=== PATIENT | male | born 1935 | race Caucasian/White ===

== ENCOUNTER 2019-01-14 15:06 | Inpatient (IN) | payer MEDICARE, OTHER ==
[~2019-01-14] VITALS: Ht 170.2 cm; Wt 79.1 kg
[2019-01-14 15:13] VITALS: BP 129/70
[2019-01-14] MEDS ORDERED: COZAAR 25 MG TA25 M1 PO (15:18)
[2019-01-14] MEDS ORDERED: NORVASC10 MG PO (15:18)
[2019-01-14] MEDS ORDERED: LIPITOR80 MG PO (15:19)
[2019-01-14 15:36] LABS: HEMATOCRIT 37.9 % (42.0-52.0); MCH 29.4 pg (26.0-34.0); MCHC 34.3 g/dL (28.0-37.0); MCV 85.6 fL (80.0-100.0); MPV 6.2 fl. (7.2-11.1); NUCLEATED RBCS 0 /100WBC; PLATELET COUNT* 570 thou/uL (150-400); RBC 4.43 mil/uL (4.50-6.00); RDW-CV 13.2 % (10.5-14.5); WBC 8.6 thou/uL (4.0-11.0)
[2019-01-14 15:40] LABS: ANION GAP 14 mmol/L (7-16); BUN 22 mg/dL (7-18); CALCIUM 9.7 mg/dL (8.5-10.1); CHLORIDE 87 mmol/L (98-107); CO2 19 mmol/L (21-32); CREATININE 1.7 mg/dL (0.6-1.3); GLUCOSE 109 mg/dL (70-99); POTASSIUM 4.3 mmol/L (3.5-5.1); SODIUM 120 mmol/L (136-145)
[2019-01-14 15:46] LABS: PROTIME 10.1 Seconds (9.20-11.50)
[2019-01-14 15:51] LABS: ALBUMIN 2.9 g/dL (3.4-5.0); ALKALINE PHOSPHATASE 103 U/L (46-116); LIPASE 205 U/L (73-393); NT-PRO BRAIN NAT PEPTIDE 138 pg/mL (<300); SGOT 32 U/L (15-37); SGPT 24 U/L (30-65); TOTAL BILIRUBIN 0.4 mg/dL (<0.1-1.0); TOTAL PROTEIN 7.5 g/dL (6.4-8.2); TROPONIN-I LEVEL <0.06 ng/mL (<0.06)
[2019-01-14 16:00] LABS: ABSOLUTE LYMPHOCYTES 0.9 thou/uL (0.8-5.3); ABSOLUTE MONOCYTES 0.3 thou/uL (0.0-1.2); ABSOLUTE NEUTROPHILS 7.3 thou/uL (1.6-8.1); PLATELET ESTIMATE ADEQUATE
[2019-01-14 20:07] VITALS: BP 106/58
[2019-01-14 20:30] VITALS: BP 111/61
[2019-01-15 04:04] LABS: HEMATOCRIT 31.7 % (42.0-52.0); HEMOGLOBIN 11.2 gm/dL (14.0-18.0); MCH 30.1 pg (26.0-34.0); MCHC 35.4 g/dL (28.0-37.0); MCV 85.1 fL (80.0-100.0); MPV 6.6 fl. (7.2-11.1); RBC 3.72 mil/uL (4.50-6.00); WBC 7.8 thou/uL (4.0-11.0)
[2019-01-15 04:10] LABS: ALBUMIN 2.4 g/dL (3.4-5.0); CALCIUM 9.5 mg/dL (8.5-10.1); CREATININE 1.4 mg/dL (0.6-1.3); MAGNESIUM 1.6 mg/dL (1.8-2.4); POTASSIUM 4.3 mmol/L (3.5-5.1); TOTAL BILIRUBIN 0.4 mg/dL (<0.1-1.0)
[2019-01-15 07:40] VITALS: BP 107/63
[2019-01-15 11:05] LABS: URINE BLOOD 3+ (Negative); URINE CLARITY CLEAR; URINE COLOR YELLOW; URINE GLUCOSE-RANDOM NEGATIVE (Negative); URINE KETONES 1+ (Negative); URINE NITRITE-REFLEX NEGATIVE (Negative); URINE PROTEIN 1+ (Negative); URINE UROBILINOGEN 0.2 E.U./dl (0.2-1.0)
[2019-01-15 11:06] LABS: URINE BILIRUBIN 1+ (Negative); URINE LEUKOCYTES-REFLEX 2+ (Negative)
[2019-01-15 11:11] LABS: BACTERIA-REFLEX >30 Many /HPF (None Seen); CASTS None Seen /LPF (None Seen); CRYSTALS None Seen /LPF (None Seen); MUCUS 0-3 Light strn/LPF (None Seen); SQUAMOUS 0-3 Few /LPF (0-3)
[2019-01-15 15:02] LABS: BF RBC 67930 /mm3
[2019-01-15 15:22] LABS: CLARITY CLOUDY; TOTAL VOLUME 4060 ml
[2019-01-15 15:48] LABS: BF LYMPHOCYTES 72 %; BF POLYS 28 %
[2019-01-15 15:51] LABS: BF WBC 1108 /mm3; SOURCE PARACENTESIS
[2019-01-15 16:41] VITALS: BP 119/59
[2019-01-15 20:54] VITALS: BP 117/53
[2019-01-16 04:00] LABS: CALCIUM 8.8 mg/dL (8.5-10.1); CREATININE 1.1 mg/dL (0.6-1.3); MAGNESIUM 1.6 mg/dL (1.8-2.4); POTASSIUM 4.2 mmol/L (3.5-5.1)
[2019-01-16 08:00] VITALS: BP 109/56
[2019-01-16] MEDS ORDERED: FLOMAX0.4 MG PO (10:13)
--- NOTE | 2019-01-16 14:27 | CON ---
[address] [address] CONSULTATION Name: KARINA JOE Room: [address] IN ..#: [id number] Admission: 01/14/19 Attend Phys: Fredi Stephenson MD Discharge: Date of : 37 Report #: [id number] THIS REPORT FOR: //name// CC: Yrn Stephenson MD DATE OF SERVICE: 01/15/2019 CLINIC NOTE SUBJECTIVE: This is an 83-year-old male, who has been evaluated previously because of bladder cancer. The patient last time seen in July, underwent surveillance cystoscopy; and at that time, there had been a discussion about cystectomy, partial cystectomy undertaken; however, the patient declined that. The patient was evaluated at the Emergency Room because of shortness of breath, hypotension and abdominal swelling. CT scan of the abdomen in the Emergency Room showed significant ascites with irregular bladder wall thickening at the dome of the bladder, measuring 1.5 cm in thickness in addition to compression fracture of T9; moderate large ascites; in addition to that, the patient had diffuse omental mesenteric nodularity with omental caking, compatible with metastatic disease. The patient underwent paracentesis today and almost 4 liters have been removed. The patient reported weight loss in the last few months. REVIEW OF SYSTEMS: All systems were reviewed. It was negative except the above. PAST MEDICAL HISTORY: Bladder cancer as mentioned above; coronary artery disease, status post CABG; BPH; compression fracture. MEDICATIONS: Per admission list. ALLERGIES: No known allergies. SOCIAL HISTORY: No smoking, no alcohol abuse, no drug abuse. FAMILY HISTORY: Noncontributory. PHYSICAL EXAMINATION: VITAL SIGNS: Today, temperature 36.6, pulse 70, respirations 16, blood pressure is 119/59, SpO2 was 98% on room air. GENERAL: The patient was sitting in chair, was not in acute distress. LUNGS: Positive rhonchi with decreased breathing sounds. ABDOMEN: Positive for ascites; however, nontender, no guarding. EXTREMITIES: +1 [place] [address] CONSULTATION Name: KARINA JOE Room: [address] IN [facility]#: [id number] Admission: 01/14/19 Attend Phys: Fredi Stephenson MD Discharge: Date of : 37 Report #: [id number] NEUROLOGIC: The patient was awake, alert, oriented x 3. Cranial nerves are grossly intact. LABORATORY DATA: Today, WBC 7.8, hemoglobin 11.2, platelets 480. PT is 10.1. Sodium is ____, creatinine is 1.4, magnesium is 1.6. IMAGING: As mentioned above, in addition to that, chest x-ray showed hiatal hernia, minimal blunting of the left costophrenic angle present, which represents scarring, no congestive heart failure or pulmonary edema. ASSESSMENT AND PLAN: An 83-year-old male with performance status ECOG of 3, who has been diagnosed previously because of localized bladder cancer. The patient presenting with abdominal nodularity, omental disease in addition to large ascites. The clinical picture is more consistent with metastatic disease. RECOMMENDATIONS: 1. I would like to wait for cytology to confirm his diagnosis. 2. In terms of imaging, I would like to complete staging by obtaining CT scan of the chest without contrast in addition to bone scan. Treatment options were discussed with the patient. He is not a candidate for cisplatin-based regimen due to performance status and kidney function. However, we discussed the indication of immunotherapy like Keytruda in his case. Most likely, we will evaluate the patient in the clinic early next week to confirm pathology and proceed with treatment. Thank you for this kind consultation. <ELECTRONICALLY SIGNED> By: Vidya Hudson MD 01/16/19 1427 1739 [id number] Hudson MD /nt
[2019-01-16 16:00] VITALS: BP 104/62
--- NOTE | 2019-01-16 16:02 | EKG ---
[place] [address] ELECTROCARDIOGRAM REPORT Name: KARINA JOE Room: [address] ADM IN [facility].#: [id number] Admission: 01/14/19 Attend Phys: Ferdi Stephenson MD Discharge: Date of : 37 Report #: [id number] THIS REPORT FOR: //name// [facility] ED Test Date: 2019-01-14 Test Time: 15:13:59 Pat Name: KARINA JOE Department: Room: [facility] Gender: M Saw Maker: UNKNOWN : 1935 Requested By: Magdy Aguilar Order Number: [id number] MD: Sami Baker Measurements Intervals [place] Rate: 89 P: 22 LA: 182 QRS: 7 QRSD: 90 T: 42 QT: 347 QTc: 423 Interpretive Statements Sinus rhythm Multiple ventricular premature complexes Probable left atrial enlargement No previous ECG available for comparison Electronically Signed On 01-16-2019 16:02:13 CDT by Sami Baker [email or web address] <ELECTRONICALLY SIGNED> By: Sami Baker MD, [facility] 01/16/19 1602 1513 151 Sami Baker MD, FACC /EPI
[2019-01-16 20:10] VITALS: BP 111/63
[2019-01-17 08:10] VITALS: BP 111/63
[2019-01-17 13:05] VITALS: BP 111/63
[2019-01-18 16:30] LABS: SOURCE ABDOMINAL
--- NOTE | 2019-01-21 17:17 | PATH ---
[address] [address] PATHOLOGY RPT PROCEDURE Name: KARINA JOE Room: [address]#: [id number] Admission: 01/14/19 Date of : 37 Discharge: 01/17/19 Report #: [id number] Path Case #: [id number] Note [facility] Accession Number: [id number] TESTS RESULT FLAG UNITS REF RANGE LAB Clinician Provided Cytology Information No. 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 SEE COMMENT. THIS INTERPRETATION INCLUDES EVALUATION OF A CELL BLOCK. COMMENT: THERE IS MUCIN PRESENT, CONFIRMED WITH PROPERLY-CONTROLLED PAS WITH DIASTASE AND MUCICARMINE STAINS ON THE CELL BLOCK. DEGENERATING, ATYPICAL CELLS ARE PRESENT IN POSSIBLE GLANULAR STRUCTURES SUGGESTING ADENOCARCINOMA. PROPERLY-CONTROLLED, AVAILABLE VALIDATED IMMUNOHISTOCHEMICAL STAINS ARE ALSO PERFORMED ON THE CELL BLOCK WITH RESULTS FOLLOWS: -CK7: EQUIVOCALLY NEGATIVE -CK20: EQUIVOCALLY POSITIVE -CK5/6: EQUIVOCALLY NEGATIVE PRELIMINARY FINDINGS DISCUSSED WITH AT APPROXIMATELY 0950 ON 01/20/2019. REVIEWED WITH DR. JOSE RAMON BLACKWELL (CYTOPATHOLOGIST), WHO AGREES WITH THE DIAGNOSIS. Signed out by: Robin Nagy MD, Pathologist NPI- [id number] Performed by: Nadine Jeffrey, Technical Business Systems Analyst ([facility]) Gross description: 01 42ML, RED, CLOUDY /LCS FLAG LEGEND: L-Low Normal,H-High Normal,LL-Alert Low,HH-Alert High <-Panic Low,>-Panic High,A-Abnormal,AA-Critical Abnormal Performed at: [facility] [place] [address] Kaden Rose MD, 02 [facility] [address] [place] [address] Robin Nagy MD, [address] [address] PATHOLOGY RPT PROCEDURE Name: KARINA JOE Room: [address]#: [id number] Admission: 01/14/19 Date of : 37 Discharge: 01/17/19 Report #: [id number] Path Case #: [id number] Specimen Comment: A courtesy copy of this report has been sent to Specimen Comment: [phone]. Specimen Comment: Report sent to DR CHAN Performed at: 01 [facility] [address] [facility] [address], [place], [place] [id number] MD Kaden Rose MD Phone: [phone]
== END 2019-01-17 14:30 | disposition home health service (06) | DRG 374 ==
LOC: M.ERS 15:06 → M.ORTHSURG 17:08 → M.TBA-ER 17:08 → M.ORTHSURG 20:13
PROVIDERS: Emergency Medicine; ADMIT Internal Medicine
PROC: 0W9G3ZZ Drainage of Peritoneal Cavity, Percutaneous Approach (ICD-10-PCS; principal; 2019-01-15)
DX: C78.6 Secondary malignant neoplasm of retroperitoneum and peritoneum (principal); E43 Unspecified severe protein-calorie malnutrition; R18.0 Malignant ascites; E87.1 Hypo-osmolality and hyponatremia; M48.54XA Collapsed vertebra, not elsewhere classified, thoracic region, initial encounter for fracture; I95.9 Hypotension, unspecified; C67.9 Malignant neoplasm of bladder, unspecified; R33.9 Retention of urine, unspecified; N40.0 Benign prostatic hyperplasia without lower urinary tract symptoms; I25.10 Atherosclerotic heart disease of native coronary artery without angina pectoris; E86.9 Volume depletion, unspecified; I50.9 Heart failure, unspecified; Z79.899 Other long term (current) drug therapy; Z95.1 Presence of aortocoronary bypass graft; Z68.27 Body mass index [BMI] 27.0-27.9, adult

== ENCOUNTER 2019-01-20 13:01 | Emergency (ER) | payer MEDICARE, OTHER ==
[~2019-01-20] VITALS: Ht 170.2 cm; Wt 74.8 kg
[~2019-01-20 13:01] MED LIST: COZAAR 25 MG TA25 M1 PO; FLOMAX0.4 MG PO; LIPITOR80 MG PO; NORVASC10 MG PO
[2019-01-20 14:18] LABS: ABSOLUTE LYMPHOCYTES 0.3 thou/uL (0.8-5.3); ABSOLUTE MONOCYTES 0.8 thou/uL (0.0-1.2); ABSOLUTE NEUTROPHILS 9.6 thou/uL (1.6-8.1); BASOPHILS 0.3 %; EOSINOPHILS 0.2 %; HEMATOCRIT 34.1 % (42.0-52.0); HEMOGLOBIN 11.7 gm/dL (14.0-18.0); LYMPHOCYTES 2.8 %; MCH 29.3 pg (26.0-34.0); MCHC 34.3 g/dL (28.0-37.0); MCV 85.5 fL (80.0-100.0); MONOCYTES 7.8 %; MPV 5.9 fl. (7.2-11.1); NUCLEATED RBCS 0 /100WBC; PLATELET COUNT* 505 thou/uL (150-400); POLYS 88.9 %; RBC 3.99 mil/uL (4.50-6.00); RDW-CV 13.1 % (10.5-14.5); WBC 10.8 thou/uL (4.0-11.0)
[2019-01-20 14:30] LABS: CALCIUM 9.5 mg/dL (8.5-10.1); CREATININE 1.6 mg/dL (0.6-1.3); POTASSIUM 4.9 mmol/L (3.5-5.1)
[2019-01-20 14:34] LABS: ALBUMIN 2.4 g/dL (3.4-5.0); TOTAL BILIRUBIN 0.4 mg/dL (<0.1-1.0); TOTAL PROTEIN 6.5 g/dL (6.4-8.2)
[2019-01-20 17:13] VITALS: BP 99/78
[2019-01-31] MEDS ORDERED: PEPCID20 MG PO (15:19)
[2019-01-31] MEDS ORDERED: LASIX 40 MG TAB40 M2 PO (15:19)
== END 2019-01-20 17:14 | disposition home or self-care (01) ==
LOC: M.ERS 13:01
PROVIDERS: Family Medicine
DX: T83.098A Other mechanical complication of other urinary catheter, initial encounter (principal); R18.8 Other ascites; E87.1 Hypo-osmolality and hyponatremia; N40.0 Benign prostatic hyperplasia without lower urinary tract symptoms; Z85.51 Personal history of malignant neoplasm of bladder; Y84.8 Other medical procedures as the cause of abnormal reaction of the patient, or of later complication, without mention of misadventure at the time of the procedure; Y92.89 Other specified places as the place of occurrence of the external cause